=== PATIENT | female | born 1995 | race African-American/Black ===

== ENCOUNTER 2018-02-11 22:28 | Emergency (ER) | payer BC, MEDICAID ==
--- NOTE | 2018-02-11 22:45 | ER Document Report ---
ED GI/ - General Chief Complaint: Nausea/Vomiting Stated Complaint: VOMITING Time Seen by Provider: 02/11/18 22:44 Mode of Arrival: Ambulatory Information source: Patient Notes: Patient is a 22-year-old female who presents to the ER today for 1 day of nausea , vomiting, watery diarrhea, abdominal cramping. Patient denies any sick contacts with similar symptoms. She admits to hot flashes and chills but has not taken her temperature. She denies any abdominal medical history. She denies any blood in her vomit or stool. TRAVEL OUTSIDE OF THE [place] IN LAST 30 DAYS: No - Related Data Allergies/Adverse Reactions: No Known Allergies Allergy (Verified 11/04/16 20:44) Past Medical History - General Information source: Patient - Social History Smoking Status: Never Smoker Family History: Reviewed & Not Pertinent - Past Medical History Cardiac Medical History: Reports: Hx Hypertension Review of Systems - Review of Systems Constitutional: See HPI EENT: No symptoms reported Cardiovascular: No symptoms reported Respiratory: No symptoms reported Gastrointestinal: See HPI Genitourinary: No symptoms reported Female Genitourinary: No symptoms reported Musculoskeletal: No symptoms reported Skin: No symptoms reported Hematologic/Lymphatic: No symptoms reported Neurological/Psychological: No symptoms reported Physical Exam - Vital signs Vitals: Temp Pulse Resp BP Pulse Ox 98.5 F 84 20 133/72 H 98 02/11/18 22:32 02/11/18 22:32 02/11/18 22:32 02/11/18 22:32 02/11/18 22:32 - Notes Notes: PHYSICAL EXAMINATION: GENERAL: Uncomfortable appearing, but in no acute distress. HEAD: Atraumatic, normocephalic. EYES: Pupils equal round and reactive to light, extraocular movements intact, sclera anicteric, conjunctiva are normal. NECK: Normal range of motion, supple without lymphadenopathy LUNGS: CTAB and equal. No wheezes rales or rhonchi. HEART: Regular rate and rhythm without murmurs ABDOMEN: Soft, mild diffuse tenderness. No guarding, no rebound BACK: no vertebral tenderness, normal ROM GI/: no CVA tenderness EXTREMITIES: Normal range of motion, no pitting edema. No cyanosis. NEUROLOGICAL: Cranial nerves grossly intact. Normal sensory/motor exams. PSYCH: Normal mood, normal affect. SKIN: Warm, Dry, normal turgor, no rashes or lesions noted Course - Re-evaluation Re-evalutation: 02/12/18 05:44 Patient feels much better after Zofran, is able to tolerate crackers and water without any vomiting. Abdominal x-ray negative for any acute pathology, nonobstructive bowel gas pattern, laboratory workup is unremarkable today. Patient be sent home with prescription for Zofran. - Vital Signs Vital signs: Temp Pulse Resp BP Pulse Ox 98.1 F 80 17 129/75 H 100 02/12/18 01:50 02/12/18 01:50 02/12/18 01:50 02/12/18 01:50 02/12/18 01:50 - Laboratory Result Diagrams: 02/11/18 23:05 02/11/18 23:05 Laboratory results interpreted by me: 02/11/18 02/11/18 23:05 23:05 Hgb 11.4 L Hct 35.0 L MCV 77 L MCH 24.9 L RDW 16.2 H Seg Neutrophils % 80.9 H Lymphocytes % 11.7 L Urine Protein 30 H Urine Urobilinogen 2.0 H Ur Leukocyte Esterase TRACE H Discharge - Discharge Clinical Impression: Nausea vomiting and diarrhea Condition: Stable Disposition: HOME, SELF-CARE Instructions: Diarrhea, Nonspecific ([facility]), Vomiting ([facility]) Additional Instructions: Return immediately for any new or worsening symptoms. Follow up with primary care provider, call tomorrow to make followup appointment. Drink plenty of fluids. Prescriptions: Ondansetron [Zofran Odt 4 mg Tablet] 1 - 2 tab PO Q4H PRN #15 tab.rapdis PRN Reason: For Nausea/Vomiting Forms: Return to Work
[2018-02-11] MEDS ORDERED: ONDANSETRON HCL INJ/PF 4 MG/2 ML SDV IV ONE (23:08)
[2018-02-11] MEDS ORDERED: ONDANSETRON 4 MG TAB.RAPDIS PO ONE (23:10)
[2018-02-11 23:22] LABS: ABSOLUTE LYMPHOCYTES (AUTO) 1.1 10^3/uL (0.5-4.7); ABSOLUTE MONOCYTES (AUTO) 0.6 10^3/uL (0.1-1.4); ABSOLUTE NEUT (AUTO) 7.3 10^3/uL (1.7-8.2); BASOPHILS % (AUTO) 0.5 % (0-2); EOSINOPHILS % (AUTO) 0.1 % (0-6); HEMOGLOBIN 11.4 g/dL (12.0-15.5); LYMPHOCYTES % (AUTO) 11.7 % (13-45); MEAN CORPUSCULAR HEMOGLOBIN 24.9 pg (27.0-33.4); MEAN CORPUSCULAR HGB CONC 32.5 g/dL (32.0-36.0); MEAN CORPUSCULAR VOLUME 77 fl (80-97); MONOCYTES % (AUTO) 6.8 % (3-13); PLATELET COUNT 338 10^3/uL (150-450); RED BLOOD COUNT 4.58 10^6/uL (3.72-5.28); RED CELL DISTRIBUTION WIDTH 16.2 % (11.5-14.0); SEGMENTED NEUTROPHILS % (AUTO) 80.9 % (42-78); TOTAL CELLS COUNTED % (AUTO) 100 %; WHITE BLOOD COUNT 9.1 10^3/uL (4.0-10.5)
[2018-02-11 23:33] LABS: ALANINE AMINOTRANSFERASE 44 U/L (9-52); ALBUMIN 4.5 g/dL (3.5-5.0); ALKALINE PHOSPHATASE 77 U/L (38-126); ANION GAP 15 (5-19); ASPARTATE AMINO TRANSFERASE 21 U/L (14-36); BILIRUBIN,DIRECT 0.1 mg/dL (0.0-0.4); BILIRUBIN,TOTAL 0.3 mg/dL (0.2-1.3); BLOOD UREA NITROGEN 12 mg/dL (7-20); CALCIUM 9.5 mg/dL (8.4-10.2); CARBON DIOXIDE 27 mmol/L (22-30); CHLORIDE 102 mmol/L (98-107); GLUCOSE 95 mg/dL (75-110); LIPASE 49.8 U/L (23-300); POTASSIUM 4.3 mmol/L (3.6-5.0); SODIUM 143.6 mmol/L (137-145); TOTAL PROTEIN 7.8 g/dL (6.3-8.2)
[2018-02-11 23:44] LABS: APPEARANCE,URINE CLOUDY; BILIRUBIN,URINE NEGATIVE (NEGATIVE); COLOR,URINE YELLOW; GLUCOSE, URINE NEGATIVE (NEGATIVE); KETONES,URINE NEGATIVE (NEGATIVE); LEUKOCYTE ESTERASE,URINE TRACE (NEGATIVE); NITRITE,URINE NEGATIVE (NEGATIVE); PROTEIN,URINE 30 mg/dL (NEGATIVE); URINE SPECIFIC GRAVITY 1.028
--- NOTE | 2018-02-12 00:41 | RADIOLOGY REPORT (SQ) ---
EXAM DESCRIPTION: KUB/ABDOMEN (SINGLE VIEW) CLINICAL HISTORY: abd pain, n/v COMPARISON: None. FINDINGS: Single view of the abdomen. No dilated loops of large or small bowel. No definite abnormal calcifications identified. No definite organomegaly. No free intraperitoneal air identified. No acute osseous abnormalities. IMPRESSION: 1. Nonobstructive bowel gas pattern.
[2018-02-12] MEDS ORDERED: ONDANSETRON ODT 4 MG TAB (6 TAB/ER DISP) PO PRN (01:36)
[2018-02-12 01:53] VITALS: BP 129/75
== END 2018-02-12 01:50 | disposition home or self-care (01) ==
LOC: ER 22:28
DX: R11.2 Nausea with vomiting, unspecified (principal); R19.7 Diarrhea, unspecified; R10.9 Unspecified abdominal pain; R68.83 Chills (without fever); I10 Essential (primary) hypertension
CPT/HCPCS: 99283; 36415; 83690; 84703; 85025; 80053; 81001; 74018; S0119